=== PATIENT | male | born 1940 | race American Indian/Alaskan Native ===

== ENCOUNTER 2016-08-02 10:22 | Outpatient (CLI) | payer BC ==
--- NOTE | 2016-08-02 12:50 | Fluoroscopy Report ---
BARIUM SWALLOW: History: Dysphagia. The patient swallows barium without difficulty demonstrating normal coordination. The cervical and thoracic portions of the esophagus demonstrate normal contours and there is normal peristalsis. There is no evidence of a hiatus hernia and no reflux is demonstrated. The patient was able to ingest the barium tablet without difficulty. IMPRESSION: No abnormality is identified.
== END 2016-08-02 10:23 | disposition home or self-care (01) ==
LOC: FLUORO 10:22
PROVIDERS: ATTEND Internal Medicine Gastroenterology
DX: R13.10 Dysphagia, unspecified (principal)
CPT/HCPCS: 74220

== ENCOUNTER 2016-08-25 08:22 | Outpatient (CLI) | payer BC ==
--- NOTE | 2016-08-25 10:27 | Fluoroscopy Report ---
MODIFIED BARIUM SWALLOW History: Dysphagia. Findings: Fluoroscopy was provided by the radiologist for speech therapy to assess the swallowing mechanism. Please refer to the formal report by speech therapy. Impression: Successful modified barium swallow.
== END 2016-08-25 08:23 | disposition home or self-care (01) ==
LOC: PT 08:22
PROVIDERS: ATTEND Internal Medicine Gastroenterology
DX: Z12.11 Encounter for screening for malignant neoplasm of colon (principal); R13.10 Dysphagia, unspecified
CPT/HCPCS: 74230